=== PATIENT | female | born 1960 | race Caucasian/White ===

== ENCOUNTER → 2017-08-18 | Outpatient (CLI) | payer OTHER ==
[~2017-08-18] MED LIST: AZITHROMYCIN 2250 MG PO; LORATIDINE 10 M10 M1 PO; NASAL ALLERGY16.9 ML NASAL; NEBULIZER MISCELL; PREDNISONE 10 M10 MG PO; TRIAMCINOLONE A80 G2 TOP
== END ==
LOC: M.RAD 15:29
DX: M47.894 Other spondylosis, thoracic region (principal); Z87.01 Personal history of pneumonia (recurrent)

== ENCOUNTER 2017-09-30 19:40 | Emergency (ER) | payer OTHER ==
[~2017-09-30] VITALS: Ht 160 cm; Wt 52.2 kg
[2017-09-30] MEDS ORDERED: AZITHROMYCIN 2250 MG PO (19:49)
[2017-09-30] MEDS ORDERED: PREDNISONE 10 M10 MG PO (19:49)
[2017-09-30] MEDS ORDERED: NEBULIZER MISCELL (20:47)
[2017-09-30] MEDS ORDERED: LORATIDINE 10 M10 M1 PO (20:48)
[2017-09-30] MEDS ORDERED: TRIAMCINOLONE A80 G2 TOP (20:48)
[2017-09-30] MEDS ORDERED: NASAL ALLERGY16.9 ML NASAL (20:49)
[2017-09-30 20:59] VITALS: BP 135/79
== END 2017-09-30 21:00 | disposition home or self-care (01) ==
LOC: M.ERS 19:40
DX: J20.9 Acute bronchitis, unspecified (principal)

== ENCOUNTER → 2019-03-22 | Outpatient (CLI) | payer OTHER | LOC: M.RAD 13:49 | DX: C34.01 Malignant neoplasm of right main bronchus (principal); M47.814 Spondylosis without myelopathy or radiculopathy, thoracic region ==

== ENCOUNTER 2021-04-14 19:14 | Emergency (ER) | payer OTHER ==
[~2021-04-14] VITALS: Ht 157.5 cm; Wt 49.0 kg
[2021-04-14] MEDS ORDERED: IBUPROFEN 800800 M1 PO (21:59)
[2021-04-14] MEDS ORDERED: CRUTCH1 EACH MISCELL ×2 (21:59)
[2021-04-14] MEDS ORDERED: PERCOCET 5-3251 EACH PO (22:06)
[2021-04-14 22:26] VITALS: BP 112/66
== END 2021-04-14 22:26 | disposition home or self-care (01) ==
LOC: M.ERS 19:14
DX: S92.212A Displaced fracture of cuboid bone of left foot, initial encounter for closed fracture (principal); Z85.118 Personal history of other malignant neoplasm of bronchus and lung; Z79.899 Other long term (current) drug therapy; Z91.041 Radiographic dye allergy status; W11.XXXA Fall on and from ladder, initial encounter; Y93.89 Activity, other specified; Y92.89 Other specified places as the place of occurrence of the external cause; Y99.8 Other external cause status